=== PATIENT | female | born 1980 ===

== ENCOUNTER 2016-12-11 23:33 | Inpatient (IN) | payer MEDICAID, SELFPAY ==
[2016-12-12 00:40] VITALS: BMI 28.5
[2016-12-12] MEDS: Lactated Ringer's 1,000 ML IV SCH ×5 (01:15→16:00)
--- NOTE | 2016-12-12 01:16 | OBADHP ---
Datetime: 12/12/2016 00:26 Admit Comment, IP Provider: CC: "my water broke" HPI: 36YO female with no sig PMH comes to [facility] for "my water broke." Per patient, her water b roke around 10 PM, she describes the water as clear, and there was pooling. Around the same time her contracts started. Initially they were far apart but now they are consistant and 5-10 mins apart. Lin clark has an uncomplicated preganancy so far. She takes prenats and Iron at home. PAST OB HX: normal full term vaginal delivery PAST MEDICAL HISTORY: denies PAST SURGICAL HISTORY: denies PAST SOCIAL HISTORY: denies Smoking/Alcohol/Drugs ALLERGIES: NKDA PHYSICAL EXAM Vital signs stable General: looks uncomfortabel HEART: s1s2 no m/g/r Lungs: clear to ascultation b/l ABDOMEN: gravid, NT LOWER EXTREMITIES: 1+ piting edema uo to the mid-hernandez. Cervix: closed/50 MONITOR: HR at 135, with catagory I ASSESSMENT: 36 YO @ 38.4 weeks presents with SROM. On exam, there was pink fluid found in the vaginal vau lt. Nitrozene test was unequivocal, although Ferning test was positive. PLAN: Admit to Labor and Delivery, CBC/Type and Screen/RPR, Intravenous access, fluids, Eva toring, Monitor Labor progress, pain management. OB Hospitalist Addendum: Pt seen and examined by me. Agree w/ above. 36 yo at 38+4 wks w / ruptured membranes, admitted to L_D. Spec exam: small water w/ blood, nitrazine equivocal, positiv e ferning. FHT reassuring. GBS negative. (ES) Pelvic Type - PN: Adequate Extremities - PN: Normal Abdomen - PN: Normal Back - PN: Not Done Breast - PN: Not Done Lungs - PN: Normal Heart - PN: Normal Thyroid - PN: Not Done Neurologic - PN: Normal HEENT - PN: Normal General - PN: Normal FHR - Baseline A Provider: 135 Gestation - Est Wks by US: 38.4 Pool Provider: Negative Nitrazine Provider: Positive Ferning Provider: Positive IP Hx Assessment: The History has been Reviewed and is Current Vital Signs Provider: Reviewed IP Chief Complaint: Suspected ruptured membranes NICHD Variability Prov Fetus A: Moderate 6-25bpm NICHD Accel Fetus A IP Provider: [id number] FHR Category Provider Fetus A: Category I NICHD Decel Fetus A IP Provider: Variable Genitourinary Exam: Normal DTRs - PN: Normal EGA AdmitDate IP: 38.5 IP Adm Impression: Term, intrauterine IP Admit Plan: Admit to unit
[2016-12-12 02:20] VITALS: RESP 18
[2016-12-12 02:29] LABS: BASO % 0.3 % (0.0-2.0); EOS % 0.4 % (0.0-4.0); HEMOGLOBIN 11.4 g/dL (12.0-16.0); LYMPH # 2.4 K/uL (1.0-4.3); LYMPH % 24.4 % (20.0-40.0); MEAN CELL VOLUME 90.6 fl (81.0-99.0); MEAN CORPUSCULAR HEMOGLOBIN 30.1 pg (27.0-31.0); MEAN CORPUSCULAR HGB CONC 33.3 g/dL (33.0-37.0); MEAN PLATELET VOLUME 8.8 fl (7.2-11.7); MONO # 0.7 K/uL (0.0-0.8); MONO % 6.9 % (0.0-10.0); NEUT # 6.7 K/uL (1.8-7.0); RBC 3.78 Mil/uL (3.80-5.20); RED CELL DISTRIBUTION WIDTH 14.9 % (11.5-14.5); WHITE BLOOD COUNT 9.9 K/uL (4.8-10.8)
[2016-12-12] MEDS: Nalbuphine 20 mg/ml Inj (1 ml) IVP PRN ×2 (03:02→12:10)
[2016-12-12] MEDS ORDERED: Nalbuphine 20 mg/ml Inj (1 ml) ONE (09:39)
[2016-12-12] MEDS ORDERED: Lidocaine 1% Inj (20ml) ONE (09:58)
[2016-12-12] MEDS ORDERED: Oxytocin 30 units/LR 500ML 30 U/500 ML BAG IV ONE (09:58)
[2016-12-12] MEDS: Oxytocin 30 units/LR 500ML 30 U/500 ML BAG IV SCH (10:00)
[2016-12-12] MEDS ORDERED: Nalbuphine 20 mg/ml Inj (1 ml) IVP PRN (10:00)
[2016-12-12] MEDS ORDERED: Fentanyl/Bupivacaine HCl 250 ML EPI ONE (11:43)
[2016-12-12] MEDS ORDERED: Promethazine 25 MG in Sodium Chloride 0.9% 50 ML IVPB ONE (12:12)
[2016-12-12] MEDS ORDERED: Oxytocin 30 units/LR 500ML 30 U/500 ML BAG IV SCH (16:24)
[2016-12-12] MEDS ORDERED: Oxycodone/Acetaminophen 5/325 mg Tab PO PRN ×2 (16:24)
[2016-12-13 07:24] LABS: BASO % 0.3 % (0.0-2.0); EOS # 0.1 K/uL (0.0-0.7); EOS % 0.7 % (0.0-4.0); LYMPH # 2.7 K/uL (1.0-4.3); LYMPH % 23.9 % (20.0-40.0); MEAN CELL VOLUME 91.4 fl (81.0-99.0); MEAN CORPUSCULAR HEMOGLOBIN 30.3 pg (27.0-31.0); MEAN CORPUSCULAR HGB CONC 33.1 g/dL (33.0-37.0); MEAN PLATELET VOLUME 8.6 fl (7.2-11.7); MONO # 0.9 K/uL (0.0-0.8); MONO % 7.7 % (0.0-10.0); NEUT # 7.5 K/uL (1.8-7.0); NEUT % 67.4 % (50.0-75.0); RBC 3.03 Mil/uL (3.80-5.20); RED CELL DISTRIBUTION WIDTH 15.1 % (11.5-14.5); WHITE BLOOD COUNT 11.2 K/uL (4.8-10.8)
[2016-12-13 08:00] LABS: HEMOGLOBIN 9.2 g/dL (12.0-16.0)
[2016-12-13] MEDS: Oxytocin 30 units/LR 500ML 30 U/500 ML BAG IV SCH (09:55)
--- NOTE | 2016-12-13 10:31 | OBDS ---
DELIVERY PERSONNEL Delivery Doctor: Emmett Pickard MD Vocational Training Director: Frandy Barr RNC MATERNAL INFORMATION Delivery Anesthesia: Epidural Medications in Delivery: pitocin 20 uniys Estimated Blood Loss (ml): 200 Placenta Cultured: No Maternal Complications: None RN Comments: boy with a compound right hand presentation and cord around foot to mother's abdo men, pt stable at the time of delivery, 9/9. cried at . Provider Comments: Normal spontaneous vaginal delivery. Patient delivered viable infant male with Apgars of 9 and 9 at one and 5 minutes respectively. Inf ant delivered via JENNIFER position. Placenta delivered spontaneously. No lacerations, perineum intact. Ut erus firm and appropriately hemostatic following delivery. Patient tolerated delivery well. No couple locations. Estimated blood loss 200 mL LABOR SUMMARY EDC: 12/21/2016 00:00 No. Babies in Womb: 1 Attempted: No Labor Anesthesia: Epidural LABOR INFORMATION Onset of Labor: 12/11/2016 22:00 Complete Dilatation: 12/12/2016 15:01 Oxytocin: Augmentation Group B Beta Strep: Negative Steroids Given: None Reason Steroids Not Administered: Not Applicable MEMBRANES Membranes Rupture Method: Spontaneous Rupture of Membranes: 12/11/2016 22:00 Length of Rupture (hrs): 17.47 Amniotic Fluid Color: Clear Amniotic Fluid Amount: Moderate Amniotic Fluid Odor: Normal STAGES OF LABOR Stage 1 hrs: 17 Stage 1 min: 1 Stage 2 hrs: 0 Stage 2 min: 27 Stage 3 hrs: 0 Stage 3 min: 4 Total Time in Labor hrs: 17 Total Time in Labor min: 32 VAGINAL DELIVERY Episiotomy: None Laceration Extension: N/A Laceration Type: None Laceration Repair: Not Applicable Initial Vag Sponge Count: 15 Final Vag Sponge Count: 15 Initial Vag Sharps Count: 0 Final Vag Sharps Count: 0 Sponge Count Correct: Yes Sharps Count Correct: N/A BABY A INFORMATION Delivery Date/Time: 12/12/2016 15:28 Method of Delivery: Vaginal Born in Route : No : N/A Forceps: N/A Vacuum Extraction: N/A Shoulder Dystocia : No SHOULDER DYSTOCIA BABY A Infant Delivery Date/Time: 12/12/2016 15:28 PRESENTATION/POSITION BABY A Presentation: Breech Cephalic Presentation: Vertex Vertex Position: Left Occipital Anterior Breech Presentation: N/A PLACENTA INFORMATION BABY A Placenta Delivery Time : 12/12/2016 15:32 Placenta Method of Delivery: Expressed Placenta Status: Delivered SCORES BABY A Heart Rate 1 min: >100 bpm Resp Effort 1 min: Good Cry Reflex Irritability 1 min: Cough or Sneeze or Pulls Away Muscle Tone 1 min: Active Motion Color 1 min: Body [place], Extremities Blue SCORE 1 MIN: 9 Heart Rate 5 min: >100 bpm Resp Effort 5 min: Good Cry Reflex Irritability 5 min: Cough or Sneeze or Pulls Away Muscle Tone 5 min: Active Motion Color 5 min: Body [place], Extremities Blue SCORE 5 MIN: 9 INFORMATION BABY A Gestational Age at Delivery: 38.0 Gestational Status: Term Infant Outcome : Liveborn Infant Condition : Stable Infant Sex: Male IDENTIFICATION/MEDS BABY A ID Band Number: [id number] ID Band Location: Left Leg; Left Arm WEIGHT/LENGTH BABY A Infant Birthweight (gms): 3015 Weight (lb): 6 Weight (oz): 10 CORD INFORMATION BABY A No. Cord Vessels: 3 Nuchal Cord : N/A Nuchal Cord Other: around foot Cord Blood Taken: Yes Infant Suction: Mouth; Nose ASSESSMENT BABY A Infant Complications: None Physical Findings at Delivery: Within Normal Limits Infant Respirations: Appears Normal History Card Clerk/ALS Called : No Transferred To: [facility]
--- NOTE | 2016-12-13 10:34 | OBPPN ---
Datetime: 12/13/2016 07:11 PP Pain Prov: Within normal limits PP Nausea Prov: Denies PP Flatus Prov: Yes PP BM Prov: Yes PP Breasts Prov: Normal PP Heart Prov: Normal PP Lungs Prov: Normal PP Abdomen/Uterus Prov: Normal PP Lochia Prov: Normal PP Vulva/Perineum Prov: Normal PP CVA Tenderness Prov: Normal PP Extremities Prov: Normal PP C/S Incision Prov: Not Applicable PP Progress Prov: Normal PP Comments Phys Exam Prov: abd: fundus firm at level of umbilicus, +BS, mild tenderness, ND, no gua rding/rigidity ext: homans neg b/l, calves nontender, no edema/erythema PP Impression Prov: Normal progression PP Plan Prov: Continue present management PP Progress Note Prov: pt seen and examined at bedside this morning. No acute events overnight. Afeb rile. OOB/ambulating w/o difficutly. Tolerating PO intake w/o difficulty. Mild pain controlled with P O Ibuprofen. Bleeding less than menses. Breast and bottle feeding. No new complaints. ROS: neg PE: as above A/P: 36 y/o now s/p on 12/12/2016, doing well on PPD1. -c/w current management -anticipate d/c on 12/14/2016 Jt Haro MD PGY2 @ 7:14 am IP PP Procedures: None Vital Signs Provider PP: Reviewed; Within Normal Limits
[2016-12-13] MEDS: Lactated Ringer's 1,000 ML IV SCH (16:40)
--- NOTE | 2016-12-14 11:20 | OBPPN ---
Datetime: 12/14/2016 07:30 PP Pain Prov: Within normal limits PP Nausea Prov: Denies PP Flatus Prov: Yes PP BM Prov: Yes PP Heart Prov: Normal PP Lungs Prov: Normal PP Abdomen/Uterus Prov: Normal PP Lochia Prov: Normal PP Extremities Prov: Normal PP Impression Prov: Normal progression PP Plan Prov: Discharge PP Progress Note Prov: [facility] [place] [facility] # [id number] This is a 36 YO who had a NVD on 12/12/16 in PM. Seen and examined at bedside. No changes overn ight. pt c/o no pain, well controlled. Pt is breast feeding baby w/ bottle feed. Tolerating regular d iet, w/o difficulty. Lochia is similar to menses volume. Passing gas, + BM. Voiding fr eely with no blood noted. Denies n/v, fever, chills, chest pain, dyspnea, dizziness. no cp/sob or diz ziness PE: VS stable Gen: patient is fatigue, NAD CV: S1S2 no murmurs PUL: clear breath sounds b/l, no wheezing Abdomen: hypoaBS, - tenderness Ext: no pedal edema, NT A/P This is a 36y/o who had a NVD on 12/12/16 in PM. Patient remains afebrile, no pain, tolerating regular diet, doing well. Motrin and Percocet for pain patient is encouraged to breastfeed and ambulate pt is stable, d/c home - Mackenzie Freeman, PGY-1@ 730am Addendum by Dr. Louis - Patient evaluated independently and I agree with the above. Patient for mega arteaga today, discharge instructions reviewed IP PP Procedures: None Vital Signs Provider PP: Reviewed; Within Normal Limits
[2016-12-14] MEDS ORDERED: Measles, Mumps, and Rubella 0.5 ML VIAL SC ONE (12:00)
[2016-12-14 18:50] VITALS: BP 118/67; PULSE 75; TEMP 97.7; O2SAT 100
== END 2016-12-14 14:48 | disposition home or self-care (01) | DRG 373 ==
LOC: H.EROB2 23:33 → H.EROB 23:42 → H.L&D 12-12 00:40 → H.EROB2 12-12 00:45 → H.OB/GYN 12-12 17:55
PROVIDERS: ADMIT Obstetrics & Gynecology; ATTEND Obstetrics & Gynecology
PROC: 10E0XZZ Delivery of Products of Conception, External Approach (ICD-10-PCS; principal; 2016-12-12)
PROC: 4A1HXCZ Monitoring of Products of Conception, Cardiac Rate, External Approach (ICD-10-PCS; 2016-12-12)
DX: O32.6XX0 Maternal care for compound presentation, not applicable or unspecified (principal); O69.82X0 Labor and delivery complicated by other cord entanglement, without compression, not applicable or unspecified; Z37.0 Single live birth; Z3A.38 38 weeks gestation of pregnancy

== ENCOUNTER 2018-08-08 00:10 | Emergency (ER) | payer MEDICAID, SELFPAY ==
[2018-08-08 00:11] VITALS: BMI 28.5
[2018-08-08 00:24] VITALS: RESP 18; O2SAT 99
--- NOTE | 2018-08-08 01:53 | ED PDOC ---
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 Patient reports pain to her suprapubic region with radiation to her lower back. Patient reports difficulty with walking and sitting . She denies any urinary symptoms or hematuria. Patient states she is sexually active with 1 partner and symptoms have not affected her in that regard. She denies fever. Past Medical History Reviewed: Historical Data, Nursing Documentation, Vital Signs Vital Signs: Last Vital Signs Temp Pulse 92 H 08/08/18 00:20 Resp 18 08/08/18 00:20 BP 131/69 08/08/18 00:20 Pulse Ox 99 08/08/18 00:20 - Medical History PMH: No Chronic Diseases Denies: Depression, Diabetes, HTN, Chronic Kidney Disease - Surgical History Surgical History: No Surg Hx - Family History Family History: States: Unknown Family Hx - Social History Current smoker - smoking cessation education provided: No Alcohol: None Drugs: Denies - Immunization History Hx Tetanus Toxoid Vaccination: No Hx Influenza Vaccination: No Hx Pneumococcal Vaccination: No - Home Medications Home Medications: Ambulatory Orders Medication Instructions Recorded Multivit/Folic Acid/I 1 tab PO 12/12/16 [] Ibuprofen [Motrin Tab] 600 mg PO Q6 PRN #0 tab 12/14/16 - Allergies Allergies/Adverse Reactions: Allergies Allergy/AdvReac Type Severity Reaction Status Date / Time No Known Allergies Allergy Verified 04/24/16 11:13 Review of Systems ROS Statement: Except As Marked, All Systems Reviewed And Found Negative Constitutional: Negative for: Fever Gastrointestinal: Positive for: Abdominal Pain Genitourinary Female: Negative for: Dysuria, Frequency, Incontinence, Hematuria Musculoskeletal: Positive for: Back Pain Physical Exam - Reviewed Nursing Documentation Reviewed: Yes Vital Signs Reviewed: Yes - Physical Exam Appears: Positive for: Well, Non-toxic, No Acute Distress Head Exam: Positive for: ATRAUMATIC, NORMAL INSPECTION, NORMOCEPHALIC Skin: Positive for: Normal Color, Warm, DRY Eye Exam: Positive for: EOMI, Normal appearance, PERRL ENT: Positive for: Normal ENT Inspection Neck: Positive for: Normal, Painless ROM Cardiovascular/Chest: Positive for: Regular Rate, Rhythm. Negative for: Murmur Respiratory: Positive for: Normal Breath Sounds. Negative for: Respiratory Distress Gastrointestinal/Abdominal: Positive for: Tenderness (minor suprapubic tenderness) Back: Positive for: Normal Inspection Extremity: Positive for: Normal ROM. Negative for: Pedal Edema, Deformity Neurological/Psych: Positive for: Awake, Alert, Normal Tone. Negative for: M otor/Sensory Deficits - Laboratory Results Result Diagrams: 08/08/18 02:54 08/08/18 02:54 - ECG O2 Sat by Pulse Oximetry: 99 (RA) Pulse Ox Interpretation: Normal Medical Decision Making Medical Decision Making: Time: 01:46 Initial Impression: LBP Initial Plan: * CT Abd Pelvis * Labs 05:33 CT Abd Pelvis FINDINGS: The visualized lung bases are unremarkable. Normal unenhanced liver. Normal gallbladder and extrahepatic biliary system. Normal unenhanced spleen. Normal pancreas. Normal bilateral adrenal glands. Normal size of the right kidney. There is no right renal mass. There are no right renal calculi. There is no right hydronephrosis. Normal visualized right ureter. Normal size of the left kidney. There is no left renal mass. There are no left renal calculi. There is no left hydronephrosis. Normal visualized left ureter. Normal visualized stomach. Normal small intestine. Uncomplicated diverticulosis of the colon. The appendix is visualized and appears normal. There is no demonstrated peritoneal fluid. Normal abdominal aorta. Normal inferior vena cava. Normal retroperitoneum. Normal urinary bladder. There is no pelvic mass lesion or lymphadenopathy. There is no pelvic fluid. Normal abdominal wall. Normal osseous structures. IMPRESSION: Mild amount of fecal residue is noted in large bowel. Uncomplicated colonic diverticulosis. 06:42 Urine is negative. ------ Scribe Attestation: Documented by Reg Solomon, acting as a scribe Samia Kenney MD Provider Scribe Attestation: All medical record entries made by the Scribe were at my direction and personally dictated by me. I have reviewed the chart and agree that the record accurately reflects my personal performance of the history, physical exam, medical decision making, and the department course for this patient. I have also personally directed, reviewed, and agree with the discharge instructions and disposition Disposition - Clinical Impression Clinical Impression: Abdominal pain - Patient ED Disposition Is Patient to be Admitted: No Counseled Patient/Family Regarding: Studies Performed, Diagnosis, Need For Followup - Disposition Disposition: Routine/Home Disposition Time: 06:40 Condition: IMPROVED Additional Instructions: follow up with your primary doctor in 1-2 days return to the ED with any worsening or concerning symptoms Instructions: Acute Abdomen (Belly Pain) Forms: [facility] (Pakistani), [facility] (Syriac) Print Language: GEORGIAN
[2018-08-08 02:59] LABS: BASO # 0.1 K/uL (0.0-0.2); BASO % 0.8 % (0.0-2.0); EOS # 0.1 K/uL (0.0-0.7); EOS % 1.6 % (0.0-4.0); HEMOGLOBIN 11.6 g/dL (12.0-16.0); LYMPH # 2.3 K/uL (1.0-4.3); LYMPH % 34.4 % (20.0-40.0); MEAN CELL VOLUME 89.5 fl (81.0-99.0); MEAN CORPUSCULAR HEMOGLOBIN 29.4 pg (27.0-31.0); MEAN CORPUSCULAR HGB CONC 32.9 g/dL (33.0-37.0); MEAN PLATELET VOLUME 9.1 fl (7.2-11.7); MONO # 0.5 K/uL (0.0-0.8); MONO % 6.9 % (0.0-10.0); NEUT # 3.7 K/uL (1.8-7.0); NEUT % 56.3 % (50.0-75.0); RBC 3.94 Mil/uL (3.80-5.20); RED CELL DISTRIBUTION WIDTH 15.2 % (11.5-14.5); WHITE BLOOD COUNT 6.6 K/uL (4.8-10.8)
[2018-08-08 03:11] LABS: ALB/GLOB RATIO 1.5 (1.0-2.1); ALBUMIN 4.4 g/dL (3.5-5.0); ALT/SGPT 27 U/L (9-52); AST/SGOT 15 U/L (14-36); BLOOD UREA NITROGEN 14 mg/dl (7-17); CALCIUM 9.4 mg/dL (8.4-10.2); GFR NON-AFRICAN AMERICAN > 60
[2018-08-08 07:14] VITALS: BP 124/65; PULSE 86; TEMP 98.6
--- NOTE | 2018-08-08 11:39 | CT ---
Date of service: 08/08/2018 PROCEDURE: CT Abdomen and Pelvis without intravenous contrast HISTORY: flank and lower abd pain COMPARISON: None. TECHNIQUE: Unenhanced. Neither IV nor oral contrast administered Radiation dose: Total exam DLP = 271.41 mGy-cm. This CT exam was performed using one or more of the following dose reduction techniques: Automated exposure control, adjustment of the mA and/or kV according to patient size, and/or use of iterative reconstruction technique. FINDINGS: LOWER THORAX: Unremarkable. LIVER: Unremarkable. No gross lesion or ductal dilatation. GALLBLADDER AND BILE DUCTS: Unremarkable. PANCREAS: Unremarkable. No gross lesion or ductal dilatation. SPLEEN: Unremarkable. ADRENALS: Unremarkable. No mass. KIDNEYS AND URETERS: Unremarkable. No hydronephrosis. No solid mass. VASCULATURE: Unremarkable. No aortic aneurysm. No atherosclerotic calcification or mural plaque present. BOWEL: Constipation without fecal impaction or obstruction. APPENDIX: A normal appendix is visualized in it's entirety. PERITONEUM: Unremarkable. No free fluid. No free air. LYMPH NODES: Unremarkable. No enlarged lymph nodes. BLADDER: Unremarkable. REPRODUCTIVE: Unremarkable. BONES: No acute fracture. OTHER FINDINGS: None. IMPRESSION: No significant or acute findings to account for/ related to the clinical presentation. Additional benign and/or incidental findings described above. Concordant results (preliminary interpretation) provided by [facility]. Procedure Completed: 04:51. Preliminary Report: Interpreted and electronically signed: 05:33. Final Interpretation: 11:35.
== END 2018-08-08 07:17 | disposition home or self-care (01) ==
LOC: H.ER 00:10
DX: R10.30 Lower abdominal pain, unspecified (principal); K57.30 Diverticulosis of large intestine without perforation or abscess without bleeding
CPT/HCPCS: 74176; 80053; 81025; 85025; 96374; 99284; J1885